=== PATIENT | female | born 1985 | race Caucasian/White ===

== ENCOUNTER 2018-05-15 22:34 | Emergency (ER) | payer MEDICAID ==
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
[2018-05-15 22:52] VITALS: BP 153/104
[2018-05-15] MEDS ORDERED: IBUPROFEN 600 MG TAB PO ONE (22:55)
[2018-05-15] MEDS ORDERED: ACETAMINOPHEN 325 MG TAB PO ONE (22:55)
== END 2018-05-16 00:30 | disposition home or self-care (01) ==
LOC: ER 22:44
DX: S09.90XA Unspecified injury of head, initial encounter (principal); S00.83XA Contusion of other part of head, initial encounter; S01.81XA Laceration without foreign body of other part of head, initial encounter
CPT/HCPCS: 99283